=== PATIENT | female | born 1965 | race Caucasian/White ===

== ENCOUNTER 2018-09-10 09:27 | Inpatient (IN) | payer MEDICARE, MEDICAID, SELFPAY ==
[2018-08-30 09:39] VITALS: BMI 21.9
[2018-09-10] VITALS (12 sets, daily range): BP systolic 92–111; BP diastolic 62–72; PULSE 75–94; RESP 12–19; TEMP 36.3–36.8; O2SAT 96–98; BMI 21.9
--- NOTE | 2018-09-10 06:00 | DI.RAD.S_ITS ---
PROCEDURE: XR PELVIS 1-2V INDICATIONS: post op right PENG TECHNIQUE: 1 view of the lower pelvis acquired. COMPARISON: SNO Outside Film, RG, PELVIS W/LAT HIP RT, 06/19/2017, 14:27. SNO Outside Film, RG, PELVIS W/LAT HIP RT, 06/12/2018, 15:41. FINDINGS: Bones: Patient is status post right hip arthroplasty, with hardware components in expected positions. The hip joint appears congruent. The visualized bony structures appear intact. Soft tissues: Overlying postoperative changes are noted. No suspicious soft tissue densities. IMPRESSION: No fracture or dislocation. Dictated by: Purvi Guevara M.D. on 09/10/2018 at 13:29 Approved by: Purvi Guevara M.D. on 09/10/2018 at 13:29
[2018-09-10] MEDS: LACTATED RINGERS 1,000 ML 100 ML IV ×2 (09:58→12:04)
--- NOTE | 2018-09-10 10:16 | PM.PREOP ---
Pre-operative Note Interval Note History & Physical reviewed/Exam performed by Physician: Yes Changes to H&P: No
[2018-09-10] MEDS: CELECOXIB 200 MG CAPSULE PO (10:18)
[2018-09-10] MEDS: ACETAMINOPHEN 325 MG TABLET 975 MG PO ×2 (10:18→14:02)
[2018-09-10] MEDS: PREGABALIN 75 MG CAPSULE PO (10:18)
[2018-09-10] MEDS: CEFAZOLIN 2 GM/100 ML FROZ.PIGGY IV ×2 (11:02→17:31)
[2018-09-10] MEDS: TRANEXAMIC ACID 1,000 MG VIAL 2000 MG INJ ×2 (11:25→12:18)
--- NOTE | 2018-09-10 11:47 | SUR.OPER ---
Lateral on padded OR bed. Gel axillary roll. Arms secured on padded armboard with pillow supporting top arm. Padded hip positioner braces x4 - anterior and posterior chest and pelvis. Additional gel pad used anterior pelvis. Gel pad under bottom leg from knee to foot and secured with tape over sheet.
[2018-09-10] MEDS: MORPHINE 4 MG/ML INJ INJ (11:54)
[2018-09-10] MEDS: KETOROLAC 30 MG/ML VIAL IV (11:54)
[2018-09-10] MEDS: ROPIVACAINE 0.5% PF 5 MG/ML 20ML AMP 60 ML INJ (12:19)
--- NOTE | 2018-09-10 12:42 | PM.OP.1 ---
Operative Date/Time/Diagnoses Date of procedure: 09/10/18 Time of procedure: 12:42 Pre-op diagnosis: Right hip degenerative joint disease Post-op diagnosis: same Procedure & Clinicians Procedure: Right total hip arthroplasty (CPT code 28753 with commercial real estate assistant) Same procedure as scheduled: Yes Indications: Patient is an 53-year-old female with severe right hip DJD. The patient has pain with activities and at rest, limited ambulation and activity tolerance, difficulties with ADLs, and failure of conservative treatment. We have discussed the nature of condition, treatment options, risks and benefits, and patient elects to proceed with total hip arthroplasty and gives informed consent. Surgeon: Ko Handley Agriculture Inspector: Douglas Haines Anesthesia Type: General and Spinal Operative Notes Closure Type: primary Specimen(s): none sent Prosthetic devices, grafts, tissues, transplants, or devices: Acetabulum: Keith [employer]hew R3 acetabular component size 48 mm Femoral component: Keith [employer]hew Anthology stem size 6 with standard offset Femoral head: 32 mm + 0 Oxinium Estimated Blood Loss (mL): 100 Procedure in detail: After satisfaction induction of anesthetic, and administration of IV antibiotics, the patient was positioned in the lateral decubitus position with all bony prominences well padded and pelvic position secured using a hip piggyback clerk positioning device. Right hip and lower extremity prepped and draped in the usual sterile fashion, 1st dose of intravenous tranexamic acid was administered, then a longitudinal incision was created centered over the greater trochanter and carried sharply through the skin and subcutaneous tissues down to the fascia kelly which was divided longitudinally and retracted with a Charnley retractor. External rotators visualize, cut, tagged, and retracted posteriorly, then the capsule was cut in a T-type fashion with the corners tagged and retracted. Hip was dislocated and femoral neck cut made according to preoperative templating. Acetabular retractors then placed, and the acetabular labrum and osteophytes were excised. The acetabulum was then sequentially reamed to 47 mm with an excellent circumferential ream and fit with the trial. The trial component was removed and a permanent size 48 mm Keith [employer] Nephew R3 acetabular component was selected, positioned, and impacted with satisfactory position and fixation achieved. Permanent liner was then inserted with the elevated lip directed posteriorly. Soft tissue then removed off the lateral femoral neck in the lateral neck was entered using a box osteotome. T-handled reamers placed down the canal followed by sequential broaching to 6 with the final broach left in place for trial reduction which demonstrated excellent leg length, range of motion, and stability characteristics with a 32 mm +0 trial ball. The trial and broach were removed, and a permanent size 6 Keith [employer] Nephew Anthology stem was selected and inserted with excellent position and fixation achieved. Another trial reduction yielded the above characteristics so the trial ball was exchanged for a permanent 32 mm +0 Oxinium ball. The hip was irrigated and reduced and excellent leg length range of motion and stability characteristics were achieved and maintained. Periarticular tissues were infiltrated with a combination of ropivacaine, morphine, and Toradol. The hip was copiously irrigated, and the capsule repaired with #2 Ethibond, and the piriformis was repaired back to the greater trochanter with the same. Fascia kelly closed with interrupted #1 Ethibond sutures, and the subcutaneous tissues were closed in 2 layers of 0 Vicryl and 2 0 Vicryl. Skin was closed with maddy and sterile dressings applied. Second dose of tranexamic acid was administered intravenously, and the anesthetic was terminated. Complications: none Condition: stable Disposition: PACU Plan for aftercare: Patient will be admitted to the acute care ann, and anticipate discharge on postop day 1 with follow-up in office in 10-14 days. Outpatient physical therapy will be arranged and patient will continue to observe posterior hip precautions. Patient will continue use of postoperative Lovenox for 10 days postop.
--- NOTE | 2018-09-10 12:46 | P.OP_ITS ---
Operative Date/Time/Diagnoses Date of procedure: 09/10/18 Time of procedure: 12:42 Pre-op diagnosis: Right hip degenerative joint disease Post-op diagnosis: same Procedure & Clinicians Procedure: Right total hip arthroplasty (CPT code 89682 with biology research assistant) Same procedure as scheduled: Yes Indications: Patient is an 53-year-old female with severe right hip DJD. The patient has pain with activities and at rest, limited ambulation and activity tolerance, difficulties with ADLs, and failure of conservative treatment. We have discussed the nature of condition, treatment options, risks and benefits, and patient elects to proceed with total hip arthroplasty and gives informed consent. Surgeon: Ko Handley Diesel Engine Inspector: Douglas Haines Anesthesia Type: General and Spinal Operative Notes Closure Type: primary Specimen(s): none sent Prosthetic devices, grafts, tissues, transplants, or devices: Acetabulum: Keith [employer] Nephew R3 acetabular component size 48 mm Femoral component: Keith [employer] Nephew Anthology stem size 6 with standard offset Femoral head: 32 mm + 0 Oxinium Estimated Blood Loss (mL): 100 Procedure in detail: After satisfaction induction of anesthetic, and administration of IV antibiotics, the patient was positioned in the lateral decubitus position with all bony prominences well padded and pelvic position secured using a hip laser print operator positioning device. Right hip and lower extremity prepped and draped in the usual sterile fashion, 1st dose of intravenous tr anexamic acid was administered, then a longitudinal incision was created centered over the greater trochanter and carried sharply through the skin and subcutaneous tissues down to the fascia kelly which was divided longitudinally and retracted with a Charnley retractor. External rotators visualize, cut, tagged, and retracted posteriorly, then the capsule was cut in a T-type fashion with the corners tagged and retracted. Hip was dislocated and femoral neck cut made according to preoperative templating. Acetabular retractors then placed, and the acetabular labrum and osteophytes were excised. The acetabulum was then sequentially reamed to 47 mm with an excellent circumferential ream and fit with the trial. The trial component was removed and a permanent size 48 mm Keith and Nephew R3 acetabular component was selected, positioned, and impacted with satisfactory position and fixation achieved. Permanent liner was then inserted with the elevated lip directed posteriorly. Soft tissue then removed off the lateral femoral neck in the lateral neck was entered using a box osteotome. T- handled reamers placed down the canal followed by sequential broaching to 6 with the final broach left in place for trial reduction which demonstrated excellent leg length, range of motion, and stability characteristics with a 32 mm +0 trial ball. The trial and broach were removed, and a permanent size 6 Keith [employer] Nephew Anthology stem was selected and inserted with excellent position and fixation achieved. Another trial reduction yielded the above characteristics so the trial ball was exchanged for a permanent 32 mm +0 Oxinium ball. The hip was irrigated and reduced and excellent leg length range of motion and stability characteristics were achieved and maintained. Periarticular tissues were inf iltrated with a combination of ropivacaine, morphine, and Toradol. The hip was copiously irrigated, and the capsule repaired with #2 Ethibond, and the piriformis was repaired back to the greater trochanter with the same. Fascia kelly closed with interrupted #1 Ethibond sutures, and the subcutaneous tissues were closed in 2 layers of 0 Vicryl and 2 0 Vicryl. Skin was closed with maddy and sterile dressings applied. Second dose of tranexamic acid was administered intravenously, and the anesthetic was terminated. Complications: none Condition: stable Disposition: PACU Plan for aftercare: Patient will be admitted to the acute care ann, and anticipate discharge on postop day 1 with follow-up in office in 10-14 days. Outpatient physical therapy will be arranged and patient will continue to observe posterior hip precautions. Patient will continue use of postoperative L ovenox for 10 days postop.
[2018-09-10] MEDS: LACTATED RINGERS 1,000 ML 125 ML IV (13:50)
[2018-09-10] MEDS: DICYCLOMINE 10 MG CAPSULE PO ×2 (14:02→16:07)
[2018-09-10] MEDS: VENLAFAXINE 37.5 MG TABLET PO (14:02)
--- NOTE | 2018-09-10 14:50 | PT.IPTN ---
Current Diagnoses Unilateral primary osteoarthritis, right hip (09/10/18) Surgery Performed Operation Date: 09/10/18 11:45 Actual Procedures p Total Hip Arthroplasty(Right) - Ko Handley MD Physical Therapy Treatment Note M3 PT-IP Subjective Start: 09/10/18 13:36 Freq: NEEDED Status: Active Protocol: Document 09/10/18 14:49 RS (Rec: 09/10/18 14:50 RS [id number]) Subjective Physical Therapy Visit Type Type Administrative Note Notes Pt not ready at 1430, will attempt again later today or tomorrow.
--- NOTE | 2018-09-10 15:48 | PC.NURSE ---
Post-op: Arrived to room 220 at 1320, wide awake and alert. Oriented X3. Dressing to R hip C/D/I. Still numb/tingly BLE's r/t spinal anesthesia. Strong pedal pulses, feet warm/pink, cap refill <2 sec. Denies pain or discomfort. SCD's to BLE's, pillow between legs and reviewed hip precautions. Vitals stable. Room air mid to upper 90's, cont pulse ox in place. Tolerating PO's without N/V. BT+, flatus+. No void yet, ludin shift aware and will continue to monitor (brief in place as precaution). Oriented to room and call light. RT called to do IS teaching. Encouraged to make needs known. Call light in reach, bed alarm on. n
--- NOTE | 2018-09-10 17:42 | PT.IIE ---
Current Diagnoses Unilateral primary osteoarthritis, right hip (09/10/18) Surgery Performed Operation Date: 09/10/18 11:45 Actual Procedures p Total Hip Arthroplasty(Right) - Ko Handley MD Physical Therapy Inpatient Evaluation/Re-Eval M1 PT/OT-IP Prior Functional Status Start: 09/10/18 13:36 Freq: NEEDED Status: Active Protocol: Document 09/10/18 17:21 EA (Rec: 09/10/18 17:42 EA [id number]) Medical Review Prior Functional Status Medical History Reviewed Yes Diet/Fluid Consistency Regular Communication Normal Mobility and Gait Independent with the use straight cane due to pain prior to hip surgery. No fall in the past six months Activities of Daily Living and IADL's Indep Social History Household Members none Living Arrangements Apartment/Condo Number of Stairs To Enter/Railing? None. Elevator, yes Home Environment High Toilet Home Equipment Front Wheel Walker Straight Cane Grab Bars In Shower Employment Status Unknown Additional Social History Comment Patient is disabled due to Bipolar and bladder condition per patient. Lives by alone; States mother will stay with her for a week once d/c for the hospital M2 PT-IP Current Condition Start: 09/10/18 13:36 Freq: NEEDED Status: Active Protocol: Document 09/10/18 17:21 EA (Rec: 09/10/18 17:42 EA [id number]) Physical Therapy Current Condition Current Condition Evaluation Date 09/10/18 Treatment Diagnosis s/p R PENG, posterolat approach Precautions Posterior Hip Precautions No Hip Flexion > 90 degrees No Hip Internal Rotation No Hip Adduction Weight Bearing Status Weight Bearing Status Weight Bear as Tolerated M3 PT-IP Subjective Start: 09/10/18 13:36 Freq: NEEDED Status: Active Protocol: Document 09/10/18 17:21 EA (Rec: 09/10/18 17:42 EA [id number]) Subjective Physical Therapy Visit Type Type Initial Evaluation Visit Start Time 16:45 Visit Stop Time 17:25 Total Visit Minutes 40 Physical Therapy Visit Comments Patient Comments I wanna go home now; states she feels better and would like to be evaluated for her mobility. Patient Goals Indep in all functional transfers and mobility Therapy Pain Assessment Pain When Pain Assessed At Rest Pain Present Pain Present Pain Reported Location Right Foot Intensity 2 Scale Used Numeric (1 - 10) Description Acute Right Hip Scale Used Numeric (1 - 10) Description Acute M4 PT-IP Mobility and Gait Start: 09/10/18 13:36 Freq: NEEDED Status: Active Protocol: Document 09/10/18 17:21 EA (Rec: 09/10/18 17:42 EA [id number]) PT-Bed Mobility Assessment Rolling Level of Assist Standby Assistance Supine to Sit Supine to Sit Standby Assistance Sit to Supine Sit to Supine Standby Assistance Scooting Scooting to Edge of Bed Standby Assistance PT-Transfer Assessment Sit to and From Stand Sit to and from Stand Independent Standby Assistance Equipment Transfer Assistive Device Gait Belt Front Wheeled Walker Transfers Transfer Destination Bed Toilet Transfer Technique steppimng transfers Transfer Ability Level of Assist Standby Assistance Gait Assessment Gait Gait Assistance Required: Standby Assistance Distance (Feet) 40 Able to Maintain Weight Bearing Status Yes During Gait Assistive Devices Assistive Device Gait Belt Front Wheeled Walker Gait Deviations General Gait Pattern Decreased Stride Length Step-to Gait Factors Limiting Gait Function Factors Limiting Gait Function Pain Comments Gait Comments VC's required during tarsnfers and mobility; but able to perform indep after few practice. PT-Balance Assessment Sitting Balance and Reactions Static Sitting Balance Ability Normal Dynamic Sitting Balance Ability Normal Standing Balance and Reactions Static Standing Balance Ability Normal Dynamic Standing Balance Ability Good M5 PT-IP Objective Assessments Start: 09/10/18 13:36 Freq: NEEDED Status: Active Protocol: Document 09/10/18 17:21 EA (Rec: 09/10/18 17:42 EA [id number]) Orientation Orientation/Cognition Level of Alertness Alert Orientation Name Month Date Year Day of Week Language Function Ability No Deficits Noted Memory Description No Deficits Noted Gross Range of Motion Upper Extremity ROM Assessment Within Functional Limits Lower Extremity ROM Assessment Right Impaired Impairments N/A due to hip pre-cautions but with functional limits Strength Upper Extremity Strength Assessment Within Functional Limits Lower Extremity Strength Assessment Right Impaired Hip N/A due to pre-cautions but with at least 3+/5 Coordination Assessment Assessment Finger to Nose Test Normal Performance Foot Tapping Test Normal Performance Sensation Assessment Sensation Gross Sensation WNL Light Touch Intact Proprioception (Position) Intact M6 PT-IP Treatment Start: 09/10/18 13:36 Freq: NEEDED Status: Active Protocol: Document 09/10/18 17:21 EA (Rec: 09/10/18 17:42 EA [id number]) Physical Therapy Treatment Exercises Exercises Ankle Pumps Gluteal Sets Quad Sets Heel Slides Straight Leg Raises Supine Hip Abduction Education Education Provided Precautions Weight Bearing Status Post-Op Packet Safety M7 PT-IP Assessment and Plan Start: 09/10/18 13:36 Freq: NEEDED Status: Active Protocol: Document 09/10/18 17:21 EA (Rec: 09/10/18 17:42 EA [id number]) PT Summary Assessment and Plan Potential Rehabilitation Potential Excellent Status of Condition at Evaluation Stable Summary Impairments Pain Assessment Summary Patient demonstrates no deficits as to sitted and standing balance. No sensory deficits to both LE's identified. Transfer and weight bearing mobility shows good sequencing with ability to place body weight to affected side. Patient clearly understands hip pre-cautions and home exercises program. Record and subjective information reveals patient has no falls in the past six months. Mother will stay to her place once discharge to hospital. In my professional opinion, patient is not a good candidate for inpatient skilled PT at this time. Goals Bed Mobility Goal Independent Gait Goal Independent Frequency of Treatment Frequency Of Treatment Discharge Recommendations To Nursing Amount of Assist Needed Independent Standby Assistance Discharge Recommendations PT Discharge Recommendations Home with Assistance Outpatient PT
--- NOTE | 2018-09-10 18:33 | PC.NURSE ---
Per Dr. Dustin edouard to discharge to home in private vehicle and silke for RN to put order in system. Removed patient's IV, discussed discharge paperwork and patient taken to car in wheelchair. Signed copy of discharge paperwork in chart.
--- NOTE | 2018-09-10 18:44 | PC.NURSE ---
Pt IV removed without issue. Cather intact. Patient tolerated well.
--- NOTE | 2018-09-10 19:43 | PC.NURSE ---
Pt requested assistance with setting up home health in about one week's time after her mother goes home. Discharge Planning did not have patient on their list yet, but said that [facility] would be rounding on patient in the am 09/11/18. Pt was anxious to discharge after she voided and worked with PT so she was advised to call DC department and obtain referrals.
== END 2018-09-10 18:55 | disposition home or self-care (01) | DRG 470 ==
PROVIDERS: Admitting Provider Orthopaedic Surgery; PCP Family Medicine; Visit Provider Orthopaedic Surgery
PROC: 0SR90JZ Replacement of Right Hip Joint with Synthetic Substitute, Open Approach (ICD-10-PCS; CPT 27130; principal; 2018-09-10 11:45)
DX: M16.11 Unilateral primary osteoarthritis, right hip (principal)
CPT/HCPCS: 72170; 94760; 97116; 97161; 97535; C1776; J0171; J0690; J1100; J1885; J2250; J2270; J2405; J2795; J3010